=== PATIENT | male | born 1935 | race Caucasian/White ===

== ENCOUNTER 2016-11-30 10:59 | Outpatient (CLI) | payer MEDICARE, OTHER ==
[2016-11-30] MEDS ORDERED: Gadobenate Dimeglumine 529 MG/1 ML (20ML VIAL) ONE (15:06)
--- NOTE | 2016-11-30 15:32 | MRI ---
MRI BRAIN WITH AND WITHOUT CONTRAST: DATE: 11/30/16 HISTORY: 81-year-old male with provided diagnosis on the order as C71.9. Status post brain biopsy. COMPARISON: MRIs of 09/07/16, 08/10/16, and 07/06/16. TECHNIQUE: Multiple sequences obtained in axial, sagittal, and coronal planes; pre and post IV injection of kristen olinium-based contrast agent: 16 mL MultiHance. FINDINGS: The previously described lesion in the left mayorga radiata and centrum semiovale, abutting the poste rior body of the left lateral ventricle, continues to decrease in size. The halo of enhancement cont inues to shrink and is now faint and more inconspicuous than on the most recent prior study of 09/07. The T2 hyperintense signal is also smaller in diameter, as seen on the axial images, currently measuring approximately 1.2 x 0.9 cm (as measured on FLAIR axial image , series 2). It is st ill associated with a small amount of magnetic susceptibility blooming artifact, indicating a small amount of hemorrhagic products within it, which may now consist mostly of hemosiderin. There is no a ssociated mass effect. There is no midline shift. No other enhancing intra-axial lesions. Ventricles are normal in size and configuration. Again noted is the bur hole at the left coronal suture at the vertex of the skull. N o extra-axial fluid collection. Mild chronic ischemic white matter changes are again noted. IMPRESSION: Continued interval involution of the now small, enhancing lesion in the left deep cerebral white mat ter. TAM Grace POS: [facility]
== END 2016-11-30 11:00 | disposition home or self-care (01) ==
LOC: MRI 10:59
PROVIDERS: ATTEND Neurological Surgery
DX: C71.9 Malignant neoplasm of brain, unspecified (principal); G93.89 Other specified disorders of brain
CPT/HCPCS: 70553; A9579

== ENCOUNTER 2017-08-23 12:57 | Outpatient (CLI) | payer MEDICARE ==
--- NOTE | 2017-08-23 15:47 | MRI ---
BRAIN MRI WITH AND WITHOUT CONTRAST: Date: 08/23/17 COMPARISON: Numerous prior brain MRIs, most recent dated 11/30/16. HISTORY: Malignant neoplasm of brain. TECHNIQUE: Multiplanar, multisequence MR imaging of the brain is obtained with and without contrast. FINDINGS: There is an intra-axial lesion in the lateral aspect of the left frontal lobe posteriorly, at the axi al level of the septum pellucidum. This left frontal lesion measures 1.7 cm in AP dimension. It is FL AIR and T1 hypointense, T2 isointense, and demonstrates avid enhancement on postcontrast imaging. Thi s lesion is new when compared to the prior study and there is surrounding vasogenic edema, the area o f vasogenic edema associated with this lesion measuring 3.8 x 2.5 cm. The axial gradient echo imaging demonstrates no evidence for intracranial hemorrhage. The lesion with in the left frontal lobe mentioned above demonstrates restricted diffusion, consistent with high cell ularity. No additional enhancing intra-axial lesions are noted. There is mild mucosal thickening involving bilateral ethmoid air cells, the right frontal sinus, and the right maxillary sinus. Arterial flow-voids at the axial level of the skull base appear grossly un remarkable on the T2-weighted imaging. There is a stable area of increased T2 signal without enhancement involving the posterior aspect of t he centrum semiovale on the left measuring 6.0 mm, in the area of a previously noted intra-axial enha ncing lesion which was documented on studies dating back to 07/06/16. IMPRESSION: New enhancing intra-axial lesion in the lateral left frontal lobe measuring 1.7 cm with surrounding v asogenic edema, suspicious for metastatic disease or primary brain neoplasm. CODE T. POS: [facility]
== END 2017-08-23 12:58 | disposition home or self-care (01) ==
LOC: MRI 12:57
PROVIDERS: ATTEND Neurological Surgery
DX: C71.9 Malignant neoplasm of brain, unspecified (principal); G93.6 Cerebral edema; G93.9 Disorder of brain, unspecified
CPT/HCPCS: 70553; 82565

== ENCOUNTER 2017-08-27 10:31 | Outpatient (CLI) | payer MEDICARE ==
[2017-08-27 12:03] LABS: Hemoglobin 12.5 g/dL (14.0-18.0); Mean Corpuscular HGB CONC 33.6 g/dL (32.0-36.0); Mean Corpuscular Hemoglobin 30.4 pg (27.0-31.0); Mean Corpuscular Volume 90.6 fL (78.0-98.0); Mean Platelet Volume 7.7 fL (7.4-10.4); Platelet Count 190 thou/uL (130-400); RBC Distribution Width 12.4 % (11.5-14.5); White Blood Cell (WBC) Count 7.3 thou/uL (4.8-10.8)
[2017-08-27 12:16] LABS: Anion Gap 11 mmol/L (10-20); BUN (Urea Nitrogen) 20 mg/dL (8.4-25.7); Calc. Creatinine Clearance 0 mL/min (70-130); Calcium 9.2 mg/dL (7.8-10.44); Carbon Dioxide 27 mmol/L (23-31); Chloride 109 mmol/L (98-107); Estimated GFR-MDRD 66; Glucose 84 mg/dL (83-110); Potassium 4.2 mmol/L (3.5-5.1); Sodium 143 mmol/L (136-145)
== END 2017-08-27 10:32 | disposition home or self-care (01) ==
LOC: LABBT 10:31
PROVIDERS: ATTEND Neurological Surgery
DX: Z01.812 Encounter for preprocedural laboratory examination (principal); G93.9 Disorder of brain, unspecified
CPT/HCPCS: 80048; 85027

== ENCOUNTER 2017-09-01 05:46 | Inpatient (IN) | payer MEDICARE ==
--- NOTE | 2017-09-01 02:41 | HP ---
CHIEF COMPLAINT: Brain mass. HISTORY OF PRESENT ILLNESS: Mr. Moon is back in the clinic for evaluation, followup MRI brain scan. In 07/2016, he had a biopsy that was nondiagnostic. Since then that went away by itself and he has been well. There has been some right leg weakness and he uses a cane, but he is doing great. He denies any speech disturbance. PAST MEDICAL HISTORY: History of aortic aneurysm, nodules foramen right and left lungs, hypertension, diabetes, GERD, cardiovascular disease, and hyperlipidemia. PAST SURGICAL HISTORY: Basal cell carcinoma surgery in 2015, heart valve replacement and stents. HOSPITALIZATIONS: The above surgeries as well as difficulty swallowing in 2002. FAMILY HISTORY: Father is . Mother is . Siblings are . Son is alive. Daughter is alive. SOCIAL HISTORY: The patient is a former smoker, quit in 1983, smoked for about 20 years 1 pack a day, does not use any other tobacco products. The patient does not drink any alcohol or use any other illicit drugs. 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 Does drink caffeine. ALLERGIES: PENICILLIN. MEDICATIONS: Aspirin, Plavix, carvedilol, valsartan, atorvastatin, CoQ10, Januvia, Protonix, nitroglycerin. PHYSICAL EXAMINATION: CONSTITUTIONAL: The patient is alert and oriented. HEENT: Head normocephalic, atraumatic. Extraocular movements intact. Hearing intact. Moist mucous membranes. PULMONARY: Normal work of breathing room air. CARDIOVASCULAR: Regular rate and rhythm. Normal S1, S2. NEUROLOGIC: Cranial nerves are intact. Cerebellar exam: There is no truncal ataxia. Gait and station: Mild right leg weakness, upper motor neuron distribution. Motor exam: Mild right leg weakness. No new drift. Sensory exam: No neglect. Speech is fluent, receptive, and expressive, speech is normal. MRI lesion with biopsy completely gone. New lesion left frontal operculum with edema surrounding, uniformly enhancing parenchymal. ASSESSMENT AND PLAN: 1. Malignant neoplasm of the frontal lobe. 2. Dr. So offered craniotomy with open biopsy and resection. Informed consent, we have discussed the indications, risks, benefits, alternatives, and expected results from surgery. The discussed indication to include, but do not limited to infection, bleeding, CSF leak, brain damage, significant loss of neurological function, seizures, strokes dependence of normal care, cardiopulmonary complications of anesthesia or long-term complications discussed included, but are not limited to recurrence, and the need for future surgery. He understands the risks and is willing to proceed. 3. The patient needs to stop aspirin and Plavix. KALE
[2017-09-01] MEDS ORDERED: Sodium Chloride 0.9% 10 ML ONE (06:25)
[2017-09-01] MEDS ORDERED: Lidocaine 0.5%/Epinephrine 1:200,000 50 ml Vial ONE (06:25)
[2017-09-01] MEDS ORDERED: Bacitracin Zinc Ointment 30 gm TUBE ONE (06:25)
[2017-09-01] MEDS ORDERED: Thrombin 5000 UNITS/5 ML VIAL ONE (06:25)
[2017-09-01] MEDS ORDERED: Nitroglycerin 50 MG/250 ML BOT 250 ML ONE (06:40)
[2017-09-01] MEDS ORDERED: Phenylephrine HCL 10 MG/ML VIAL ONE (06:40)
[2017-09-01] MEDS ORDERED: CEFAZOLIN/Water 2 GM/20 ML SYRINGE ONE (06:49)
[2017-09-01] MEDS ORDERED: Fentanyl 100 MCG/2 ML VIAL ONE (06:57)
[2017-09-01 07:57] VITALS: BMI 24.3
[2017-09-01] MEDS ORDERED: levETIRAcetam 500 MG/100 ML PREMIX BAG ONE (09:08)
[2017-09-01] MEDS ORDERED: Docusate 100 MG CAP PO PRN (09:40)
[2017-09-01] MEDS ORDERED: HYDROcodone/Acetaminophen 7.5/325 mg Tablet PO PRN ×2 (09:40)
[2017-09-01] MEDS ORDERED: Cepastat Lozenges 1 LOZ PO PRN (09:40)
[2017-09-01] MEDS ORDERED: Mag-Al 1200 mg/1200 mg/30 ML UDCUP PO PRN (09:40)
[2017-09-01] MEDS ORDERED: Zolpidem Tartrate 5 MG TAB PO PRN (09:40)
[2017-09-01] MEDS ORDERED: Ondansetron HCl/PF 4 MG/2 ML Vial IVP PRN ×2 (09:40→10:07)
[2017-09-01] MEDS ORDERED: Labetalol HCl 100 MG/20 ML VIAL SLOW IVP PRN (09:40)
[2017-09-01] MEDS ORDERED: hydrALAZINE 20 MG/ML VIAL SLOW IVP PRN (09:40)
[2017-09-01] MEDS ORDERED: diphenhydrAMINE 50 MG CAP PO PRN (09:40)
[2017-09-01] MEDS ORDERED: Nitroglycerin 0.4 MG TAB (25 Tab Bottle) SL PRN (09:56)
[2017-09-01] MEDS ORDERED: HYDROmorphone 2 MG/ML VIAL SLOW IVP PRN (10:07)
[2017-09-01] MEDS ORDERED: Promethazine HCl 25 MG/ML VIAL IM PRN (10:07)
[2017-09-01] MEDS ORDERED: Promethazine HCl 25 MG/ML VIAL SLOW IVP PRN (10:07)
[2017-09-01] MEDS ORDERED: Morphine Sulfate 2 MG/ML SYRINGE SLOW IVP PRN (10:07)
[2017-09-01] MEDS ORDERED: Meperidine HCl/PF 25 MG/ML VIAL SLOW IVP PRN (10:07)
[2017-09-01] MEDS: Sodium Chloride 0.9% 1,000 ML IV SCH ×2 (11:52→20:14)
--- NOTE | 2017-09-01 11:59 | OP ---
DATE OF PROCEDURE: 09/01/2017 SURGEON: Zoie So M.D. RESERVATIONS MANAGER: Kelly Lamb PA-C PREOPERATIVE INDICATION: Make diagnosis, prevent neurological deterioration. PREOPERATIVE DIAGNOSIS: Left frontal lobe lesion. POSTOPERATIVE DIAGNOSIS: Left frontal lobe lesion. OPERATIVE PROCEDURE: BrainLAB stereotactic-assisted left frontal craniotomy, debulking of tumor. PREOPERATIVE MEDICATION: Ancef 2 grams IV. DRAIN NUMBER: Zero. DRAIN TYPE: None. OPERATIVE DICTATION: The patient was brought to the operating room. General endotracheal anesthesia was induced. A Suarez nemo headholder was attached to the patient's head. The neck was turned to the right and the head was immobilized with Suarez attachment for the operating table. Using [facility] [employer] navigation system, [facility], and surface registration techn [employer], we created a 3-dimensional navigational stereotactic map. We checked our registration with yisel face landmarks and found it to be excellent. Hair was removed from the left side of the scalp with e lectric clippers. We planned a curvilinear incision from the root of the zygoma towards the midline of the upper forehead behind the hairline. Under our incision, we infused local anesthetic. The sca lp was sterilely prepped and draped. We opened with a 10-blade knife and controlled bleeding with bi polar and monopolar cautery. We dissected down to the periosteal layer and folded the scalp flap for carty leaving the temporalis muscle. The [employer] navigation system demonstrated the surface presenta tion of the tumor just under the temporalis muscle about 1 cm below the superior temporal line. We m shree 2 vertical incisions in temporalis muscle and folded it inferiorly under a fishhook. We then chika lance a yoav hole behind the frontal keyhole and one in the posterior third of the superior temporal li ne. We fashioned a circular craniotomy after stripping the dura from the undersurface of the bone. We irrigated copiously with bacitracin irrigation. We opened the dura in a cruciate fashion. The [employer] navigation system showed us the surface presentation on the frontal operculum of the lesion. We brought the operating microscope into the field. Under microscopic magnification using microsurgical techniques, we made a small corticotomy dissected with micro instruments to the edge of the lesion, which was more firm. It was a white color unlike the brain around it and completely different consistency. It feathered out on the edges towards norm al brain. We entered the center of the lesion and took multiple fragments and sent them to pathology . The pathologist called, who found that there was viable tissue that was very abnormal and that the cells were poorly differentiated, round blue cells, and lymphoma was on the differential. They manuel cated they had enough tissue to make a final diagnosis. We debulked the center of the lesion without touching any normal brain around it. We therefore undoubtedly left a shell of tumor tissue behind. We irrigated copiously with bacitracin irrigation. We closed the dura with 4-0 silk pop off. The o perative microscope was taken out of the field, the skull flap was reapproximated with plates and scr ews. We closed the temporalis muscle and closed the scalp in anatomic layers, and we applied a steri le dressing. The patient was taken out of the [facility] and transferred to the transfer cart. This w as a clean case and no contamination.
[2017-09-01] MEDS ORDERED: Dexamethasone 4 MG TAB PO SCH (12:00)
[2017-09-01] MEDS: Acetaminophen 325 MG TAB PO PRN ×2 (12:12→21:02)
[2017-09-01] MEDS ORDERED: Dexamethasone 20 MG/5 ML VIAL ONE (13:50)
[2017-09-01] MEDS ORDERED: Glycopyrrolate 0.2 MG/ML 5 ML SYRINGE ONE (13:50)
[2017-09-01] MEDS ORDERED: Lidocaine 1% PF 5 ML VIAL ONE ×2 (13:50)
[2017-09-01] MEDS ORDERED: PHENYLEPHRINE-NS 100 MCG/ML 10 ML SYRINGE ONE (13:50)
[2017-09-01] MEDS ORDERED: Esmolol 100 MG/10 ML VIAL ONE (13:50)
[2017-09-01] MEDS ORDERED: Ondansetron HCl/PF 4 MG/2 ML Vial ONE (13:50)
[2017-09-01] MEDS ORDERED: PROPOFOL 200 MG/20 ML VIAL ONE (13:50)
[2017-09-01] MEDS: CEFAZOLIN/Water 2 GM/20 ML SYRINGE SLOW IVP SCH ×2 (14:06→21:03)
[2017-09-01] MEDS: Dexamethasone 4 MG TAB PO SCH (17:30)
[2017-09-01] MEDS: Carvedilol 3.125 MG TAB PO SCH (20:01)
[2017-09-01] MEDS: levETIRAcetam 500 MG TAB PO SCH (20:02)
[2017-09-01] MEDS ORDERED: Famotidine 20 MG TAB PO SCH (21:00)
[2017-09-01] MEDS ORDERED: Pantoprazole 40 MG GRANULES PACKET PO SCH (21:00)
[2017-09-01] MEDS ORDERED: Atorvastatin Calcium 40 MG TAB PO SCH (21:00)
[2017-09-01] MEDS ORDERED: Ubidecarenone 50 MG CAP PO SCH (21:00)
[2017-09-02 00:57] VITALS: TEMP 97.8
[2017-09-02] MEDS: Acetaminophen 325 MG TAB PO PRN ×2 (00:59→05:11)
[2017-09-02] MEDS: Dexamethasone 4 MG TAB PO SCH ×2 (01:00→05:11)
[2017-09-02] MEDS ORDERED: Dexamethasone 1 MG TAB PO SCH ×3 (06:00→14:00)
--- NOTE | 2017-09-02 06:43 | PRG ---
DATE OF SERVICE: 09/02/2017 Mr. Moon is 1 day out from stereotactic tumor debulking in the left frontal operculum. He had a paola sonable evening. He has no evidence of dysphasia this morning. He reports that it is a little hard to sleep in the ICU, but he finally got to sleep around 2:00 a.m. Does not have any other complaints . His vitals look reasonably stable. Incision is well approximated and dry. There is no significan t scalp swelling yet. I do not see any new neurological deficits on Mr. Moon. If he is able to be safe for his activities of daily living, he can be discharged today. I warned him that his scalp wou ld swell over the next few days and then start getting better on Wednesday. He should avoid aspirin and Plavix for 2 weeks. When the pathologist finish with their work, we will contact the family with th e results of the pathology and move onto the next step of treatment.
[2017-09-02] MEDS: levETIRAcetam 500 MG TAB PO SCH (08:37)
[2017-09-02] MEDS: Carvedilol 3.125 MG TAB PO SCH (08:38)
[2017-09-02] MEDS ORDERED: Stress 600 With Zinc 1 TAB PO SCH (09:00)
[2017-09-02] MEDS ORDERED: Alogliptin 25 MG TAB PO SCH (09:00)
[2017-09-02] MEDS ORDERED: Valsartan 80 MG TAB PO SCH (09:00)
[2017-09-02 11:15] VITALS: BP 116/57
[2017-09-03] MEDS ORDERED: Dexamethasone 1 MG TAB PO SCH ×2 (06:00→18:00)
== END 2017-09-02 10:13 | disposition home or self-care (01) | DRG 822 ==
LOC: SURG A 05:46 → CCU 10:17
PROVIDERS: ADMIT Neurological Surgery; ATTEND Neurological Surgery
PROC: 00B70ZZ Excision of Cerebral Hemisphere, Open Approach (ICD-10-PCS; principal; 2017-09-01)
PROC: 2W30XYZ Immobilization of Head using Other Device (ICD-10-PCS; 2017-09-01)
DX: C83.31 Diffuse large B-cell lymphoma, lymph nodes of head, face, and neck (principal); I10 Essential (primary) hypertension; K21.9 Gastro-esophageal reflux disease without esophagitis; E78.5 Hyperlipidemia, unspecified; I25.10 Atherosclerotic heart disease of native coronary artery without angina pectoris; Z87.891 Personal history of nicotine dependence; Z95.2 Presence of prosthetic heart valve; Z95.5 Presence of coronary angioplasty implant and graft; Z98.890 Other specified postprocedural states
CPT/HCPCS: 36415; 85610; 85730; 88184; 88307; 88331; 88333; 88334; 88341; 88342; 88360; A4216; C1713; G8978-GP-CI; G8979-GP-CI; G8980-GP-CI; J0131; J1100; J1953; J2001; J2370; J2405; J2704; J3010; J3490; J8540

== ENCOUNTER 2017-11-28 20:10 | Inpatient (IN) | payer MEDICARE ==
[2017-11-28 20:42] LABS: Bilirubin Negative (Negative); Blood, Urine Moderate (Negative); Clarity CLEAR (Clear); Glucose, Urine (Dipstick) 100 mg/dL (Negative); Leukocyte Moderate (Negative); Nitrite Negative (Negative); Protein, Urine (Dipstick) Negative (Neg-Trace); Specific Gravity, Urine 1.018 (1.002-1.036); Urobilinogen 0.2 mg/dL (0.2-1.0); pH, Urine 5.5 (5.0-9.0)
[2017-11-28 20:44] LABS: Bacteria/HPF 3+ HPF (None Seen); Hyaline Casts/LPF 0-3 HYALINE CAST LPF (0-3 Hyaline); Pathc Cast-AUWi Flag 0.29 (0-2.49); Squamous Epithelial None Seen HPF (0-3); WBC/HPF 21-50 HPF (0-3)
[2017-11-28] MEDS ORDERED: cefTRIAXone\\ROCEPHIN 1 GM VIAL ONE (20:57)
[2017-11-28] MEDS ORDERED: Sodium Chloride 0.9% 100 ML ONE (20:58)
[2017-11-28 21:01] LABS: #Eosinphils 0.1 thou/uL (0.0-0.7); #Lymphocytes 1.3 thou/uL (1.20-3.40); #Monocytes 2.1 thou/uL (0.11-0.59); #Neutrophils 10.7 thou/uL (1.40-6.50); %Basophils 0.3 % (0.0-1.0); %Eosinophils 0.4 % (0.0-10.0); %Lymphocytes 9.3 % (21.0-51.0); %Monocytes 14.5 % (0.0-10.0); %Neutrophils 75.5 % (42.0-75.0); Hemoglobin 10.8 g/dL (14.0-18.0); Mean Corpuscular HGB CONC 32.7 g/dL (32.0-36.0); Mean Corpuscular Hemoglobin 29.9 pg (27.0-31.0); Mean Corpuscular Volume 91.4 fL (78.0-98.0); Platelet Count 206 thou/uL (130-400); RBC Distribution Width 14.9 % (11.5-14.5); Red Blood Cell (RBC) Count 3.61 mill/uL (4.70-6.10); White Blood Cell (WBC) Count 14.1 thou/uL (4.8-10.8)
[2017-11-28 21:24] LABS: ALT (SGPT) 29 U/L (8-55); AST (SGOT) 20 U/L (5-34); Alkaline Phosphatase 76 U/L (40-150); Anion Gap 8 mmol/L (10-20); BUN (Urea Nitrogen) 24 mg/dL (8.4-25.7); Bilirubin, Total 1.1 mg/dL (0.2-1.2); Calc. Creatinine Clearance 0 mL/min (70-130); Calcium 9.3 mg/dL (7.8-10.44); Carbon Dioxide 29 mmol/L (23-31); Chloride 102 mmol/L (98-107); Estimated GFR-MDRD 59; Globulin 2.6 g/dL (2.4-3.5); Glucose 118 mg/dL (83-110); Potassium 4.2 mmol/L (3.5-5.1); Protein, Total 6.6 g/dL (5.8-8.1); Sodium 135 mmol/L (136-145)
--- NOTE | 2017-11-28 21:36 | RAD ---
CHEST ONE VIEW: INDICATIONS: History of fever. COMPARISON: None. FINDINGS: There is a right IJ chest wall port. The lungs are clear. Heart size is upper limits of normal. Th ere are vascular calcifications involving the aortic arch. The aorta is mildly tortuous. There is m ild thoracolumbar scoliosis. No acute osseous abnormality is evident. IMPRESSION: No acute cardiopulmonary abnormality. POS: [facility]
[2017-11-28] MEDS ORDERED: Acetaminophen 500 MG TAB ONE (22:37)
[2017-11-29] MEDS ORDERED: Ibuprofen 800 MG TAB ONE (00:05)
[2017-11-29 00:52] VITALS: BMI 23.6
[2017-11-29] MEDS ORDERED: Ondansetron HCl/PF 4 MG/2 ML Vial IVP PRN (00:53)
[2017-11-29] MEDS ORDERED: Ondansetron ODT 4 MG TAB SL PRN (00:53)
[2017-11-29] MEDS ORDERED: Acetaminophen 325 MG TAB PO PRN ×2 (00:53→02:40)
[2017-11-29] MEDS: Sodium Chloride 0.9% 1,000 ML IV SCH ×2 (03:01→21:46)
[2017-11-29] MEDS ORDERED: Nitroglycerin 0.4 MG TAB (25 Tab Bottle) SL PRN (03:56)
[2017-11-29] MEDS: Vancomycin HCl 1 GM in Premix Bag 1 BAG IVPB SCH ×2 (03:59→16:56)
[2017-11-29 05:32] LABS: #Eosinphils 0.1 thou/uL (0.0-0.7); #Lymphocytes 1.2 thou/uL (1.20-3.40); #Monocytes 1.4 thou/uL (0.11-0.59); #Neutrophils 8.3 thou/uL (1.40-6.50); %Basophils 0.4 % (0.0-1.0); %Eosinophils 1.4 % (0.0-10.0); %Lymphocytes 11.1 % (21.0-51.0); %Monocytes 12.8 % (0.0-10.0); %Neutrophils 74.4 % (42.0-75.0); Hemoglobin 9.4 g/dL (14.0-18.0); Mean Corpuscular HGB CONC 33.4 g/dL (32.0-36.0); Mean Corpuscular Hemoglobin 30.8 pg (27.0-31.0); Mean Corpuscular Volume 92.1 fL (78.0-98.0); Mean Platelet Volume 7.8 fL (7.4-10.4); Platelet Count 176 thou/uL (130-400); RBC Distribution Width 14.7 % (11.5-14.5); Red Blood Cell (RBC) Count 3.06 mill/uL (4.70-6.10); White Blood Cell (WBC) Count 11.1 thou/uL (4.8-10.8)
[2017-11-29 05:40] LABS: ALT (SGPT) 21 U/L (8-55); AST (SGOT) 13 U/L (5-34); Albumin 3.3 g/dL (3.4-4.8); Alkaline Phosphatase 61 U/L (40-150); Anion Gap 7 mmol/L (10-20); BUN (Urea Nitrogen) 24 mg/dL (8.4-25.7); Calc. Creatinine Clearance 59 mL/min (70-130); Calcium 8.7 mg/dL (7.8-10.44); Carbon Dioxide 27 mmol/L (23-31); Chloride 107 mmol/L (98-107); Estimated GFR-MDRD 61; Globulin 2.1 g/dL (2.4-3.5); Glucose 150 mg/dL (83-110); Magnesium 1.6 mg/dL (1.6-2.6); Potassium 3.6 mmol/L (3.5-5.1); Protein, Total 5.4 g/dL (5.8-8.1); Sodium 137 mmol/L (136-145)
[2017-11-29] MEDS ORDERED: HumaLOG 300 UNITS/3 ML VIAL SC PRN (05:48)
[2017-11-29] MEDS ORDERED: Dextrose 5% in Water 1,000 ML IV PRN (05:48)
[2017-11-29] MEDS ORDERED: Dextrose 50% Abboject 50 ML SYRINGE IVP PRN (05:48)
[2017-11-29] MEDS: Aztreonam 2 GM in Sodium Chloride 0.9% 100 ML IVPB SCH ×3 (06:08→21:46)
[2017-11-29] MEDS: Stress 600 With Zinc 1 TAB PO SCH (08:34)
[2017-11-29] MEDS: Clopidogrel Bisulfate 75 MG TAB PO SCH (08:34)
[2017-11-29] MEDS: Alogliptin 25 MG TAB PO SCH (08:34)
[2017-11-29] MEDS: Aspirin 81 mg Enteric Coated Tablet PO SCH (08:35)
[2017-11-29] MEDS: Enoxaparin Sodium 40 MG/0.4 ML SYRINGE SC SCH (08:35)
--- NOTE | 2017-11-29 10:35 | HP ---
CHIEF COMPLAINT: Fever. HISTORY OF PRESENT ILLNESS: This is an 82-year-old male with past medical history of hypertension, hyperlipidemia, GERD, brain cancer, specifically lymphoma, presenting with fever and chills. Per patient's , the patient's last methotrexate treatment was 13 days ago at [facility] [place], and patient also received treatment with procarbazine and patient was at [facility] [place] on the 4th, the 5th, and the 6th of this month and received the last 3 doses of procarbazine at home. On arrival, states that patient had fever and temperature was around 101. Patient states that he has been feeling well during his chemo, but now having fever and also symptoms of dysuria. The patient denies any vomiting, nausea, chest pain, palpitations, back pain, diarrhea, constipation. Of note, in 2017, patient had a deep brain tumor, which according to the disappeared. On 09/01/2017, patient underwent left craniotomy and debulking of tumor. REVIEW OF SYSTEMS: Positive for fever, chills, and dysuria. Otherwise, as documented in the HPI, all other systems were reviewed and were negative. PAST MEDICAL HISTORY: Hypertension, hyperlipidemia, GERD, lymphoma. PAST SURGICAL HISTORY: Cardiac stent placement x4. Needle biopsy, cranial biopsy. PSYCHIATRIC HISTORY: No previous psychiatric history. SOCIAL HISTORY: Denies alcohol use. Denies any illicit drug use. Denies any smoking history. The patient lives at home with the . FAMILY HISTORY: Reviewed and noncontributory. ALLERGIES: PENICILLIN. CURRENT MEDICATIONS: 1. Carvedilol 3.125. 2. Clopidogrel 75 mg. 3. Pantoprazole 40 mg. 4. Losartan 50 mg. 5. Atorvastatin 40 mg. 6. Januvia 100 mg. PHYSICAL EXAMINATION: VITAL SIGNS: Blood pressure is 137/68, pulse is 84, respiratory rate of 18, temperature of 101.4. GENERAL: The patient is lying in bed, appears to be sweating profusely, and able to speak without any difficulties. NEUROLOGIC: The patient is alert and oriented x3. HEENT: Normocephalic, atraumatic. Pupils are equally round and react to light. Extraocular movements are intact. No scleral icterus. No conjunctival pallor. No nystagmus. NECK: Trachea is normal. Full range of motion. No tracheal deviation. No meningeal signs. RESPIRATORY: Clear to auscultation bilaterally. No wheezing, no rales, no rhonchus appreciated. CARDIOVASCULAR: Positive S1 and S2, regular rate and rhythm. ABDOMEN: Soft, nontender, nondistended. Positive bowel sounds in all quadrants. EXTREMITIES: The patient has a 5/5 upper extremity strength and 5/5 lower extremity strength. SKIN: Warm, dry, and intact. ED COURSE: The patient received Motrin, normal saline, Tylenol, Rocephin. LABORATORY DATA: WBC is 14.1, hemoglobin is 10.8, hematocrit is 33.0, RDW is 14.9. Sodium 135, potassium is 4.2, chloride is 102, carbon dioxide 29, anion gap of 8, BUN is 24, creatinine is 1.19, glucose 118. Urinalysis positive for leukoesterase. ASSESSMENT AND PLAN: This is an 82-year-old male, being admitted for: 1. fever and chills, likely due to a side effect of chemotherapy. At this point , the patient's white count is elevated at 14. We will start the patient on antibiotics. We will monitor the patient's blood pressure and patient's temperature. We will get cultures and follow up on cultures. We will continue to manage the patient supportively. 1. History of lymphoma. Patient goes to [facility] [place] for treatment. Patient is scheduled to go for followup tomorrow. We will contact [facility] for any further recommendations. This patient needs to be transferred to that facility. 2. History of hypertension. We will continue current medication. 3. History of diabetes mellitus. We will do insulin sliding scale. 4. Deep venous thrombosis and gastrointestinal prophylaxis. We will do Lovenox. MTDD
--- NOTE | 2017-11-29 17:06 | CON ---
DATE OF CONSULTATION: 11/29/2017 REASON FOR CONSULTATION: Primary SHAREPOINT MANAGER lymphoma. HISTORY OF PRESENT ILLNESS: An 82-year-old male with primary SHAREPOINT MANAGER lymphoma, on chemotherapy at [facility], presenting with fever and urinary incontinence and burning with urination. The patient states that for the past few days he has had urinary incontinence and mild burning pain on urination. Yesterday, his thought he looked feverish, when checked his temperature it is 101.5. She promptly called me and I recommended she take him to the ER given the fever and current chemotherapy. On arrival to the ER, the patient's temperature was 101. Vital signs are otherwise stable, though he did have leukocytosis. The patient is currently on high dose methotrexate and procarbazine. The patient was due for an MRI today and to start his fourth cycle of treatment this week. Urinalysis in the ER was positive for WBC and leukoesterase and prelim culture suggests Klebsiella/Enterobacter. The patient denies any headaches, nausea, vomiting, diarrhea. He states that his incontinence and burning are improved since admission to the hospital. He denies any current fevers. REVIEW OF SYSTEMS: Ten-point review of systems negative except as per HPI. PAST MEDICAL HISTORY: Primary SHAREPOINT MANAGER lymphoma, hypertension, hyperlipidemia, GERD. PAST SURGICAL HISTORY: Renal biopsy, cardiac stent placement x4. SOCIAL HISTORY: Denies smoking, alcohol or illicit drugs. The patient lives at home with . FAMILY HISTORY: Noncontributory. ALLERGIES: PENICILLIN. CURRENT MEDICATIONS: Reviewed. PHYSICAL EXAMINATION: VITAL SIGNS: Temperature 97.5, pulse 57, blood pressure 122/58, respirations 16 , satting 94% on room air. GENERAL: The patient sitting in a chair watching TV, in no acute distress. HEENT: Normocephalic, atraumatic. No scleral icterus. RESPIRATORY: Clear to auscultation bilaterally. CARDIOVASCULAR: Normal S1, S2 with regular rate and rhythm. ABDOMEN: Soft, nondistended, nontender. No suprapubic tenderness. EXTREMITIES: A 5/5 strength in all extremities. No edema. SKIN: No rash. NEUROLOGIC: Cranial nerves 2 through 3 grossly intact. PSYCHIATRIC: Awake, alert and oriented x3. LABORATORY DATA: White blood cells 14.1 on admission, currently 11.1, hemoglobin 9.4, platelets 176. BUN 24, creatinine 1.15. Urine showed moderate leukocyte esterase, 21-50 white blood cells, 3+ bacteria. Urine culture shows presumptive klebsiella/enterobacter. IMAGING DATA: Chest x-ray on 11/28/2014 showed no acute cardiopulmonary abnormality. ASSESSMENT AND PLAN: An 82-year-old male with history of primary SHAREPOINT MANAGER lymphoma, currently on high dose methotrexate and procarbazine, being treated at [facility], presented to the hospital with fever, urinary continence of burning on urination. He was found to have a UTI and positive SIRS criteria consistent with sepsis secondary to urinary tract infection. The patient is currently stable and afebrile on aztreonam and vancomycin. Presumptive urine culture shows klebsiella/enterobacter. The patient was due for chemotherapy this week and is currently pending possible transfer to [facility] as an inpatient. The patient has not had restaging scan of his lymphoma. This was due for today with MRI of the brain. He has tolerated chemotherapy very well and currently has no neurologic deficits. The patient is stable and with gram negative bacteria in the urine, the patient does not require vancomycin. We would recommend continuing IV antibiotics for his complicated UTI in this immunosuppressed patient and transferred to [facility] if patient is accepted. The patient can continue to follow up with Yaniv Khan and Dr. Merrill as an outpatient. [facility]
[2017-11-29] MEDS: Atorvastatin Calcium 40 MG TAB PO SCH (21:45)
[2017-11-30] MEDS: Vancomycin HCl 1 GM in Premix Bag 1 BAG IVPB SCH (03:57)
[2017-11-30] MEDS: Aztreonam 2 GM in Sodium Chloride 0.9% 100 ML IVPB SCH ×2 (06:31→14:04)
[2017-11-30] MEDS: Alogliptin 25 MG TAB PO SCH (08:08)
[2017-11-30] MEDS: Aspirin 81 mg Enteric Coated Tablet PO SCH (08:09)
[2017-11-30] MEDS: Clopidogrel Bisulfate 75 MG TAB PO SCH (08:09)
[2017-11-30] MEDS: Enoxaparin Sodium 40 MG/0.4 ML SYRINGE SC SCH (08:09)
[2017-11-30] MEDS ORDERED: Carvedilol 3.125 MG TAB PO SCH (09:03)
[2017-11-30] MEDS: Carvedilol 3.125 MG TAB PO SCH ×2 (09:50→20:04)
[2017-11-30] MEDS: Stress 600 With Zinc 1 TAB PO SCH (09:51)
--- NOTE | 2017-11-30 14:32 | PDOC.PN ---
- Subjective Encounter Start Date: 11/30/17 Encounter Start Time: 14:30 Subjective: feels better but still weak -: discussed the request for transfer to [facility] & they want to stay -: no N/V/D/no SOB/cough/CP - Objective Resuscitation Status: Resuscitation Status FULL:Full Resuscitation MAR Reviewed: Yes Vital Signs & Weight: Vital Signs (12 hours) Temp Pulse Resp BP BP Pulse Ox 11/30/17 12:00 97.6 F 63 18 131/60 96 11/30/17 08:00 97.7 F 54 L 18 101/54 L 93 L 11/30/17 04:00 98.5 F 58 L 16 100/50 L 93 L Weight Weight 179 lb 6 oz I&O: 11/29/17 11/30/17 12/01/17 06:59 06:59 06:59 Intake Total 323 3180 Output Total 500 0 Balance -177 3180 Result Diagrams: 11/29/17 05:10 11/29/17 05:10 Additional Labs: Accuchecks 11/30/17 11/30/17 11/29/17 10:59 06:33 20:09 POC Glucose 137 H 110 156 H 11/29/17 17:27 POC Glucose 109 Microbiology 11/28/17 20:45 Venous blood - Right Arm Blood Culture - Preliminary Specimen has been received and culture in progress. No Growth to date. 11/28/17 20:38 Venous blood - Left Arm Blood Culture - Preliminary Specimen has been received and culture in progress. No Growth to date. 11/28/17 20:30 Urine voided Urine Culture - Preliminary Klebsiella pneumoniae ssp pneu Laboratory Tests 11/28/17 11/28/17 11/29/17 20:45 20:45 05:10 WBC 14.1 H 11.1 H Lactic Acid 1.2 Phys Exam - Physical Examination Constitutional: NAD HEENT: PERRLA, moist MMs, sclera anicteric, oral pharynx no lesions Neck: no nodes, no JVD, supple, full ROM Respiratory: no wheezing, no rales, no rhonchi, clear to auscultation bilateral Cardiovascular: RRR, no significant murmur, no rub Gastrointestinal: soft, non-tender, no distention, positive bowel sounds Musculoskeletal: no edema, pulses present Mediport site w/o erythema/warmth/swelling Neurological: non-focal, normal sensation, moves all 4 limbs Psychiatric: normal affect, A&O x 3 Skin: no rash Dx/Plan (1) Sepsis Code(s): A41.9 - SEPSIS, UNSPECIFIED ORGANISM Status: Acute (2) UTI (urinary tract infection) Status: Acute Qualifiers: Hematuria presence: without hematuria (3) 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 port site uninfected -: Pt will keep new appt at [facility] for staging MRI -: No need to transfer as anticpite DC home tomorrow. family agreeable -: am labs.HD stable. clinically better. arrange HH * . Review of Systems - Review of Systems Constitutional: weakness, malaise. negative: fever, chills, sweats, other ENT: negative: Ear Pain, Ear Discharge, Nose Pain, Nose Discharge, Nose Congestion, Mouth Pain, Mouth Swelling, Throat Pain, Throat Swelling, Other Cardiovascular: negative: chest pain, palpitations, orthopnea, paroxysmal nocturnal dyspnea, edema, light headedness, other Gastrointestinal: negative: Nausea, Vomiting, Abdominal Pain, Diarrhea, Constipation, Melena, Hematochezia, Other Genitourinary: negative: Dysuria, Frequency, Incontinence, Hematuria, Retention , Other Musculoskeletal: negative: Neck Pain, Shoulder Pain, Arm Pain, Back Pain, Hand Pain, Leg Pain, Foot Pain, Other Neurological: negative: Weakness, Numbness, Incoordination, Change in Speech, Confusion, Seizures, Other - Medications/Allergies Allergies/Adverse Reactions: Allergies Allergy/AdvReac Type Severity Reaction Status Date / Time Penicillins Allergy Verified 11/29/17 01:23 Medications: Current Medications Acetaminophen (Tylenol) 650 mg PO Q6H PRN PRN Reason: Headache/Fever or Pain Alogliptin Benzoate (Alogliptin) 25 mg PO DAILY [facility] Last Admin: 11/30/17 08:08 Dose: 25 mg Aspirin (Ecotrin) 81 mg PO DAILY [facility] Last Admin: 11/30/17 08:09 Dose: 81 mg Atorvastatin Calcium (Lipitor) 40 mg PO QPM [facility] Last Admin: 11/29/17 21:45 Dose: 40 mg Carvedilol (Coreg) 3.125 mg PO BID [facility] Last Admin: 11/30/17 09:50 Dose: Not Given Clopidogrel Bisulfate (Plavix) 75 mg PO DAILY [facility] Last Admin: 11/30/17 08:09 Dose: 75 mg Dextrose/Water (Dextrose 50%) 25 gm IVP PRN PRN PRN Reason: HYPOGLYCEMIA PROTOCOL Enoxaparin Sodium (Lovenox) 40 mg SC 0900 [facility] Last Admin: 11/30/17 08:09 Dose: 40 mg Glucagon (Glucagon) 1 mg IM PRN PRN PRN Reason: HYPOGLYCEMIA PROTOCOL Sodium Chloride (Normal Saline 0.9%) 1,000 mls @ 80 mls/hr IV .[id number] [facility] Last Admin: 11/29/17 21:46 Dose: 1,000 mls Vancomycin HCl 1 gm/ Device 200 mls @ 200 mls/hr IVPB 0400,1600 [facility] Last Admin: 11/30/17 03:57 Dose: 200 mls Aztreonam 2 gm/ Sodium (Chloride) 100 mls @ 200 mls/hr IVPB Q8HR [facility] Last Admin: 11/30/17 14:04 Dose: 100 mls Dextrose/Water (D5w) 1,000 mls @ 0 mls/hr IV INF PRN PRN Reason: HYPOGLYCEMIA PROTOCOL Insulin Human Lispro (Humalog) 0 units SC .MILD SLIDING SCALE PRN; Protocol PRN Reason: MILD SLIDING SCALE Miscellaneous Medication (Pharmacy To Dose) 0 each IVPB PRN PRN PRN Reason: V[facility] Pharmacy to Dose Multivitamins/Zinc (Stress 600 With Zinc) 1 tab PO DAILY [facility] Last Admin: 11/30/17 09:51 Dose: 1 tab Nitroglycerin (Nitrostat) 0.4 mg SL ASDIR PRN PRN Reason: Chest Pain Pantoprazole Sodium (Protonix) 40 mg PO DAILY [facility] Last Admin: 11/30/17 08:08 Dose: 40 mg Sodium Chloride (Flush - Normal Saline) 10 ml IVF Q12HR [facility] Last Admin: 11/30/17 08:09 Dose: Not Given Sodium Chloride (Flush - Normal Saline) 10 ml IVF PRN PRN PRN Reason: Saline Flush Last Admin: 11/29/17 03:01 Dose: 10 ml
[2017-11-30] MEDS: Sodium Chloride 0.9% 1,000 ML IV SCH ×2 (16:30→23:22)
--- NOTE | 2017-11-30 18:38 | CT ---
ABDOMEN AND PELVIC CT SCAN WITHOUT IV CONTRAST: 11/30/17 HISTORY: 82-year-old male with history of fever and urinary tract infection. The patient is on chemotherapy fo r lymphoma. COMPARISON: 06/10/16 CT angiogram chest. Mild linear stranding in the posterior lung bases. Small caliber gallbladder with a possible very tin y gallstone. No ductal dilatation. The pancreas, spleen, adrenal glands, are unremarkable. There are two focal aneurysms of the abdominal aorta, one just below the level of the renal arteries approxima ting 4.9 cm in anterior and posterior dimension and a second somewhat more caudal aneurysm measuring approximately 4.3 cm in anterior posterior dimension, these do not appear significantly changed from the prior 06/10/16 study. Nonobstructing right renal calculus. No evidence for an obstructing calcul us. The urinary bladder is unremarkable. No abscess, adenopathy or abnormal fluid collection within t he abdomen or pelvis. IMPRESSION: Stable abdominal aortic aneurysms. Nonobstructing right renal calculus, but no evidence for acute obstruction. Somewhat small contracted appearing gallbladder with possible small gallstone but no per icholecystic fat stranding. POS: VALERIO
[2017-11-30] MEDS: Atorvastatin Calcium 40 MG TAB PO SCH (20:03)
[2017-11-30] MEDS: Cipro 250 MG TAB PO SCH (20:03)
--- NOTE | 2017-11-30 21:01 | CON ---
DATE OF CONSULTATION: 11/30/2017 REASON FOR CONSULTATION: Fever. 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 The patient developed general malaise and fevers, which started the day before admission. He denied any headaches. No visual symptoms, sore throat, odynophagia, dysphagia. No back pain. No dyspnea or cough. He did have quite pronounced increased urinary frequency with some dysuria. No diarrhea. No bleeding. No joint symptoms. 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 PAST SURGICAL HISTORY: Cardiac stenting, craniotomy with resection of lymphoma. SOCIAL HISTORY: Never a smoker. FAMILY HISTORY: Noncontributory. ALLERGIES: PENICILLIN with rash. CURRENT MEDICATIONS: Tylenol, alogliptin, Ecotrin, Lipitor, aztreonam, Coreg, Plavix, enoxaparin, insulin, multivitamins, pantoprazole, vancomycin. PHYSICAL EXAMINATION: VITAL SIGNS: T-max 98.5, blood pressure 130/60, pulse 63, respirations 18, O2 sat 96%. GENERAL: Appears in no distress, oriented. SKIN: Shows a port, which is accessed at this time without inflammatory changes. The patient does not have a Pinedo catheter and is voiding spontaneously in the urinal. HEENT: No lymphadenopathy. Ocular movements are conjugate. Oral cavity moist. NECK: Supple without jugular vein distention. No carotid bruits. LUNGS: With symmetric clear breath sounds. HEART: S1, S2 regular rate without murmurs. ABDOMEN: Soft. Not distended or tender. No ascites. No bladder distention. No organomegaly. EXTREMITIES: No joint inflammatory activity. No edema. Pulses 1+ in dorsalis pedis. Strength in the upper and lower extremities is preserved and symmetric. NEUROLOGIC: Cognitive function appears to be intact. A little bit of hearing impairment. LABORATORY DATA: White cell count on admission 14,000 and now is 11,000, platelets 206, hemoglobin 10.8, neutrophil percentage 75 on arrival and now 74% . Chemistry with a sodium 137, creatinine 1.15. Liver profile is normal. Albumin is 3.3. Urinalysis with 21 to 50 wbc's. We have 2 sets of blood cultures, thus far no growth; and we have a urine culture with Klebsiella pneumoniae with 75,000-100,000 CFUs per mL. IMAGING STUDIES: The patient had an abdomen and pelvis in 2017, which showed infrarenal abdominal aortic aneurysm and other issues with the vessels, but no imaging studies now. There is a chest x-ray, which showed no acute cardiopulmonary abnormality. ASSESSMENT: 1. Large-cell lymphoma, on chemotherapy. 2. New onset of fever. 3. Neutrophilia. 4. Dysuria with positive urine cultures and abnormal urinalysis. DISCUSSION: With the absence of other sites of involvement, the differential diagnosis includes urinary tract infection with pyelonephritis. We will need to image the abdomen. We will go ahead and order a CT stone protocol, rule out obstruction and nephrolithiasis. Other sites of involvement that could be of concern include the port, but thus far blood cultures are negative. If they remain negative, then I would pretty much exclude the port as a culprit here. No other intra-abdominal or respiratory tract inflammatory process identified at this point in time, and no evidence of central nervous system inflammatory process either. Recurrence of lymphoma would be another concern but it is not apparent at this time. The organism identified is broadly susceptible and eventually if the diagnosis is confirmed, then can be discharged on oral quinolone for another 10 days approximately. It seems like he does not have evidence to suggest urinary retention at this point in time. JOSE MD
[2017-12-01] MEDS: Sodium Chloride 0.9% 1,000 ML IV SCH (04:56)
[2017-12-01 05:07] LABS: Anion Gap 12 mmol/L (10-20); BUN (Urea Nitrogen) 13 mg/dL (8.4-25.7); Calc. Creatinine Clearance 80 mL/min (70-130); Calcium 8.7 mg/dL (7.8-10.44); Carbon Dioxide 24 mmol/L (23-31); Chloride 110 mmol/L (98-107); Estimated GFR-MDRD 87; Glucose 107 mg/dL (83-110); Potassium 3.7 mmol/L (3.5-5.1); Sodium 142 mmol/L (136-145)
[2017-12-01 05:23] LABS: Band 2 % (5-11); Eosinophils 5 % (0-10); Hemoglobin 9.6 g/dL (14.0-18.0); Hypochromia SLIGHT = 6-15 cells (100X) (0-5/hpf); Lymphocytes 12 % (21-51); MDiff Complete? YES; Mean Corpuscular Hemoglobin 30.4 pg (27.0-31.0); Mean Platelet Volume 8.1 fL (7.4-10.4); Monocytes 15 % (0-10); Neutrophil 66 % (42-75); PLT Morphology Comment Appears Adequate; Platelet Count 229 thou/uL (130-400); RBC Distribution Width 14.5 % (11.5-14.5); Red Blood Cell (RBC) Count 3.17 mill/uL (4.70-6.10); White Blood Cell (WBC) Count 4.6 thou/uL (4.8-10.8)
[2017-12-01] MEDS: Cipro 250 MG TAB PO SCH (06:23)
[2017-12-01] MEDS: Clopidogrel Bisulfate 75 MG TAB PO SCH (08:52)
[2017-12-01] MEDS: Enoxaparin Sodium 40 MG/0.4 ML SYRINGE SC SCH (08:52)
[2017-12-01] MEDS: Carvedilol 3.125 MG TAB PO SCH (08:52)
[2017-12-01] MEDS: Alogliptin 25 MG TAB PO SCH (08:52)
[2017-12-01] MEDS: Stress 600 With Zinc 1 TAB PO SCH (08:53)
[2017-12-01] MEDS: Aspirin 81 mg Enteric Coated Tablet PO SCH (08:53)
[2017-12-01 11:26] VITALS: BP 119/58; TEMP 97.7
--- NOTE | 2017-12-01 12:57 | DIS ---
DATE OF ADMISSION: 11/29/2017 DATE OF DISCHARGE: 12/01/2017 CONDITION AT THE TIME OF DISCHARGE: Stable and improved. DISCHARGE DIAGNOSES: 1. Sepsis secondary to urinary tract infection. 2. Urinary tract infection with Klebsiella species. 3. Primary central nervous system lymphoma, currently on chemotherapy at [facility]. 4. Diabetes mellitus type 2. 5. Hypertension. DISCHARGE MEDICATIONS: Restart home medications as per HPI. No changes were made. New Medications: Ciprofloxacin 500 mg p.o. b.i.d. for 10 more days and Florastor 250 mg daily for 14 days. INHOUSE CONSULTATIONS: 1. Oncology, Dr. Terrence Kessler. 2. Infectious Disease, Dr. Nevarez. PROCEDURES DONE IN THE HOSPITAL: 1. Chest x-ray upon presentation, which was unremarkable. No evidence of infiltrates. 2. CT scan of the abdomen and pelvis, which is negative for any urinary obstruction, pyelonephritis. Stable 4.9 cm abdominal aortic aneurysm below the level of the renal arteries was seen. Nonobstruc ting right renal calculus was also seen. Small gallstones without pericholecystic fat stranding seen . PRIMARY CARE PHYSICIAN: Jaydon Ibrahim D.O. DISCHARGE DISPOSITION: Home with home health. HISTORY OF PRESENTING ILLNESS: Mr. 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 His last josesito motherapy was 13 days ago prior to this presentation and he has received his third cycle. He develop ed a fever of 101 at home and was not feeling well with some generalized weakness. Upon presentation , his white count was 14.1, temperature of 101.4. His urinalysis showed positive leukocyte esterase. Chest x-ray was unremarkable. He was admitted with a presumptive diagnosis of sepsis secondary to urinary tract infection. Please see admission history and physical for further details. HOSPITAL COURSE: Mr. Moon had a rather unremarkable hospital course. His blood cultures remain neg ative. His port site was examined and was unremarkable. His urine culture did come back positive fo r Klebsiella species, which was resistant to Bactrim and intermediate sensitivity to ampicillin and n itrofurantoin. He was treated with IV aztreonam and vancomycin in the hospital and Infectious Diseas e was also consulted for given his history of immunosuppression and cancer chemotherapy. When his urine sensitivities came back, Dr. Nevarez suggested changing the antibiotics to oral and he w as started on oral ciprofloxacin. As of this morning, he is back to his baseline, afebrile, eating a nd drinking well and ambulating well. Home health was brought up and the patient's thought that would really help the patient and the patient accepted that as well. Home health is being arranged and he will be discharged after that. They have rescheduled to follow up appointment for a staging MRI at [facility] and it is this daisyi ng Wednesday, this being Wednesday. He was seen and examined prior to discharge. PHYSICAL EXAMINATION: VITAL SIGNS: This morning, temperature 97.7, pulse of 60, respirations 18, saturating 97% on room ai r, blood pressure 119/58. GENERAL: No acute distress, awake, alert, oriented x3. CHEST: Clear to auscultation bilaterally. HEART: Rate and rhythm regular. LABORATORY DATA: CBC shows WBCs 4.6, which was 14.1 upon presentation, hemoglobin 9.6, which was 10. 8 upon presentation. Serum chemistries unremarkable. Blood culture negative x2. Urine culture, Kle bsiella pneumoniae species. They will follow up with primary care physician in 1-2 weeks as well. Prescriptions were provided an d discharge plan was discussed with the patient and his and they verbalized understanding. Total time spent in the discharge of this patient 32 minutes.
== END 2017-12-01 12:50 | disposition home or self-care (01) | DRG 872 ==
LOC: ERS 20:10 → OBSVTOIN 11-29 00:31 → ONC 11-29 00:31
PROVIDERS: ADMIT Internal Medicine; ATTEND Internal Medicine
DX: A41.50 Gram-negative sepsis, unspecified (principal); N39.0 Urinary tract infection, site not specified; C85.89 Other specified types of non-Hodgkin lymphoma, extranodal and solid organ sites; A41.9 Sepsis, unspecified organism; E78.5 Hyperlipidemia, unspecified; K21.9 Gastro-esophageal reflux disease without esophagitis; Z88.0 Allergy status to penicillin; Z92.21 Personal history of antineoplastic chemotherapy; E11.9 Type 2 diabetes mellitus without complications; T45.1X5A Adverse effect of antineoplastic and immunosuppressive drugs, initial encounter; I10 Essential (primary) hypertension; Z79.02 Long term (current) use of antithrombotics/antiplatelets; Z79.4 Long term (current) use of insulin
CPT/HCPCS: 36415; 36416; 71045; 74176; 80048; 80053; 81003; 81015; 83605; 83735; 85025; 87040; 87077; 87086; 87186; 96365; 96366; J0696; J1642; J1650; J3370; J3490; J7050

== ENCOUNTER 2019-08-21 08:36 | Outpatient (CLI) | payer MEDICARE ==
[2019-08-21] MEDS ORDERED: Magnevist 469MG/ML 20 ML VIAL ONE (10:04)
--- NOTE | 2019-08-21 10:33 | MRI ---
MRI BRAIN WITH AND WITHOUT CONTRAST: DATE: 08/21/2019 HISTORY: 84-year-old male "C 85.89 lymphoma restaging" COMPARISON: 01/18/2019 MRI from [facility] in , images. The report is not available. TECHNIQUE: Multiplanar, multisequence MRI of the brain performed pre- and post-IV injection of gadolinium based contrast agent. FINDINGS: Old left pterional craniotomy changes, with adjacent extra-axial postsurgical enhancing scar or granu lation tissue. Deep to this, a small region of left lateral suprasylvian frontal lobe encephalomalacia and gliosis, unchanged. Several centimeters posterior and medial to this, in the left periventricular white matter, mayorga ra diata, and centrum semiovale, a small, approximately 1.5 x 0.4 x 0.6 cm focal CSF-filled brain parenchymal vertically oriented defect surrounded by a halo of gliosis, with hemosiderin stain, repre senting the site of the original brain tumor noted on 07/06/2016. Currently no enhancement involving this lesion, and no interval change since 01/18/2019. An approximately 1.8 x 1.7 x 0.5 cm T1 hypointense, FLAIR hyperintense, and strongly enhancing intrao sseous lesion involving left parietal bone, unchanged in size since 01/18/2019 MRI from [facility]. It has grown in size compared to 03/01/[facility]. CT may be useful for fur ther evaluation of this. Currently, there is no abnormal intra-axial enhancement, mass effect, midline shift, or obstructive h ydrocephalus. No restricted diffusion. No interval change in the brain parenchyma since 01/18/2019.. IMPRESSION: 1) enhancing osseous lesion involving left parietal bone, stable since 01/18/2019, but having grown s bigg 03/01/2018. This is suspicious for osseous metastatic lesion. Noncontrast CT may be useful. 2) old left pterional craniotomy changes, with small region of adjacent left lateral frontal encephal omalacia and gliosis. 3) small focus of residual chronic changes at site of first identified original brain tumor in left d eep cerebral white matter, unchanged since 01/18/2019. 4) currently no evidence of active malignant brain tumor.
== END 2019-08-21 08:37 | disposition home or self-care (01) ==
LOC: TBSIIMAG 08:36
PROVIDERS: ATTEND Internal Medicine Hematology & Oncology
DX: C85.90 Non-Hodgkin lymphoma, unspecified, unspecified site (principal); G93.89 Other specified disorders of brain; M89.9 Disorder of bone, unspecified
CPT/HCPCS: 70553; A9579

== ENCOUNTER 2022-03-02 10:15 | Inpatient (IN) | payer MEDICARE ==
[2022-03-02 12:56] LABS: Hemoglobin 11.8 g/dL (13.5-17.5); Mean Corpuscular HGB CONC 33.3 g/dL (32.0-36.0); Mean Corpuscular Volume 90.1 fl (81.2-95.1); Mean Platelet Volume 10.5 fl (7.4-10.4); Platelet Count 220 10x3/uL (150-450); RBC Distribution Width 13.9 % (11.5-14.5); Red Blood Cell (RBC) Count 3.93 10x6/uL (4.32-5.72); White Blood Cell (WBC) Count 6.7 10x3/uL (3.5-10.5)
[2022-03-02 13:16] LABS: Anion Gap 12 mmol/L (10-20); BUN (Urea Nitrogen) 31 mg/dL (8.4-25.7); Calc. Creatinine Clearance 0 mL/min (70-130); Calcium 9.5 mg/dL (7.8-10.44); Carbon Dioxide 30 mmol/L (23-31); Chloride 107 mmol/L (98-107); Estimated GFR 47; Glucose 97 mg/dL (83-110); Potassium 4.6 mmol/L (3.5-5.1); Sodium 144 mmol/L (136-145)
[2022-03-03] MEDS ORDERED: Fentanyl 250 MCG/5 ML VIAL ONE (06:07)
[2022-03-03] MEDS ORDERED: Protamine Sulfate 50 MG/5 ML VIAL ONE (06:28)
[2022-03-03] MEDS ORDERED: Heparin 10,000 UNITS/ 10 ML VIAL ONE (06:28)
[2022-03-03] MEDS ORDERED: Lidocaine 1% MPF 2 ML VIAL ONE (06:41)
[2022-03-03 07:21] LABS: SARS-CoV-2 NAA Rapid Test Not Detected (NotDetected)
[2022-03-03] MEDS ORDERED: Clindamycin/D5W 900 mg/50 ml Premix Bag ONE (07:22)
[2022-03-03] MEDS ORDERED: PROPOFOL 200 MG/20 ML VIAL ONE (07:36)
[2022-03-03] MEDS ORDERED: Ondansetron PF 4 MG/2 ML Vial ONE (07:36)
[2022-03-03] MEDS ORDERED: Rocuronium Bromide 10 MG/ML (10ML VIAL) ONE (07:36)
[2022-03-03] MEDS ORDERED: Mannitol 12.5 GM/50 ML ONE (08:41)
[2022-03-03] MEDS ORDERED: SUGAMMADEX SODIUM 200 MG/2 ML VIAL ONE (09:17)
[2022-03-03] MEDS ORDERED: Ondansetron PF 4 MG/2 ML Vial IVP PRN (09:27)
[2022-03-03] MEDS ORDERED: Phenylephrine 40 MG in Sodium Chloride 0.9% 250 ML 250 ML IVPB PRN (09:27)
[2022-03-03] MEDS ORDERED: niCARdipine 25 MG in Sodium Chloride 0.9% 250 ML 250 ML IVPB PRN (09:27)
[2022-03-03] MEDS ORDERED: traMADol HCl 50 MG TAB PO PRN (09:27)
[2022-03-03] MEDS ORDERED: Fentanyl 100 MCG/2 ML VIAL SLOW IVP PRN (09:27)
[2022-03-03] MEDS ORDERED: Acetaminophen 325 MG TAB PO PRN (09:27)
[2022-03-03] MEDS ORDERED: Dextrose 5% in Water 1,000 ML IV PRN (09:33)
[2022-03-03] MEDS ORDERED: HumaLOG 300 UNITS/3 ML VIAL SC PRN (09:33)
[2022-03-03] MEDS ORDERED: Dextrose 50% Abboject 50 ML SYRINGE SLOW IVP PRN (09:33)
[2022-03-03] MEDS ORDERED: Fentanyl 100 MCG/2 ML VIAL ONE (09:58)
[2022-03-03 12:06] VITALS: BMI 21.7
[2022-03-03] MEDS: Lactated Ringer's 1,000 ML IV SCH ×2 (12:08→21:13)
[2022-03-03] MEDS: Clindamycin/D5W 900 MG in Premix Bag 1 BAG IVPB SCH ×2 (14:39→20:54)
[2022-03-03] MEDS: Carvedilol 3.125 MG TAB PO SCH (20:56)
[2022-03-03] MEDS ORDERED: Losartan 25 MG TAB PO SCH (21:00)
[2022-03-03] MEDS ORDERED: Atorvastatin Calcium 40 MG TAB PO SCH (21:00)
[2022-03-04] MEDS: Clindamycin/D5W 900 MG in Premix Bag 1 BAG IVPB SCH ×2 (01:53→08:04)
[2022-03-04] MEDS: Lactated Ringer's 1,000 ML IV SCH (01:56)
[2022-03-04 03:18] LABS: #Eosinphils 0.1 thou/uL (0.0-0.7); #Lymphocytes 1.2 thou/uL (1.20-3.40); #Monocytes 0.8 thou/uL (0.11-0.59); #Neutrophils 4.9 thou/uL (1.40-6.50); %Basophils 0.6 % (0.0-1.0); %Eosinophils 1.7 % (0.0-10.0); %Lymphocytes 16.8 % (21.0-51.0); %Monocytes 11.1 % (0.0-10.0); %Neutrophils 69.8 % (42.0-75.0); Hemoglobin 10.3 g/dL (14.0-18.0); Mean Corpuscular HGB CONC 35.2 g/dL (32.0-36.0); Mean Corpuscular Hemoglobin 32.4 pg (27.0-31.0); Mean Corpuscular Volume 92.1 fl (78.0-98.0); Mean Platelet Volume 7.8 fL (7.4-10.4); Platelet Count 157 10x3/uL (130-400); RBC Distribution Width 12.5 % (11.5-14.5); Red Blood Cell (RBC) Count 3.19 mill/uL (4.70-6.10); White Blood Cell (WBC) Count 6.9 10x3/uL (4.8-10.8)
[2022-03-04 03:38] LABS: Anion Gap 12 mmol/L (10-20); BUN (Urea Nitrogen) 20 mg/dL (8.4-25.7); Calc. Creatinine Clearance 45 mL/min (70-130); Calcium 8.9 mg/dL (7.8-10.44); Carbon Dioxide 26 mmol/L (23-31); Chloride 105 mmol/L (98-107); Estimated GFR 55; Glucose 122 mg/dL (83-110); Potassium 4.1 mmol/L (3.5-5.1); Sodium 139 mmol/L (136-145)
[2022-03-04] MEDS: Carvedilol 3.125 MG TAB PO SCH (08:05)
[2022-03-04 08:11] VITALS: TEMP 98.2
[2022-03-04] MEDS ORDERED: Alogliptin 25 MG TAB PO SCH (09:00)
[2022-03-04] MEDS ORDERED: Aspirin Chewable 81 MG TAB PO SCH (09:00)
== END 2022-03-04 09:21 | disposition home or self-care (01) | DRG 269 ==
LOC: SURG A 03-03 05:49 → CCU 03-03 11:54
PROVIDERS: ADMIT Thoracic Surgery (Cardiothoracic Vascular Surgery); ATTEND Thoracic Surgery (Cardiothoracic Vascular Surgery)
PROC: 04V03EZ Restriction of Abdominal Aorta with Branched or Fenestrated Intraluminal Device, One or Two Arteries, Percutaneous Approach (ICD-10-PCS; principal; 2022-03-03)
PROC: B4101ZZ Fluoroscopy of Abdominal Aorta using Low Osmolar Contrast (ICD-10-PCS; 2022-03-03)
DX: I71.40 Abdominal aortic aneurysm, without rupture, unspecified (principal); C85.10 Unspecified B-cell lymphoma, unspecified site; I25.10 Atherosclerotic heart disease of native coronary artery without angina pectoris; I10 Essential (primary) hypertension; E78.5 Hyperlipidemia, unspecified; E11.9 Type 2 diabetes mellitus without complications; I49.5 Sick sinus syndrome; Z88.0 Allergy status to penicillin; Z95.5 Presence of coronary angioplasty implant and graft; Z79.899 Other long term (current) drug therapy; Z79.82 Long term (current) use of aspirin; Z79.02 Long term (current) use of antithrombotics/antiplatelets; Z79.84 Long term (current) use of oral hypoglycemic drugs
CPT/HCPCS: 36415; 36416; 80048; 85025; 85027; 86850; 86900; 86901; C1760; C1769; C1776; C1889; C1894; J1642; J1644; J2150; J2405; J2704; J2720; J3010; J3490; J7120; U0002

== ENCOUNTER 2022-03-22 10:15 | Emergency (ER) | payer MEDICARE ==
[~2022-03-22 10:15] MED LIST: Iopamidol 370 76% 75 ML VIAL FS ONE
[2022-03-22 11:13] LABS: #Eosinphils 0.2 thou/uL (0.0-0.7); #Lymphocytes 1.4 thou/uL (1.20-3.40); #Monocytes 0.6 thou/uL (0.11-0.59); #Neutrophils 4.9 thou/uL (1.40-6.50); %Basophils 0.7 % (0.0-1.0); %Eosinophils 2.6 % (0.0-10.0); %Lymphocytes 19.3 % (21.0-51.0); %Monocytes 8.1 % (0.0-10.0); %Neutrophils 69.3 % (42.0-75.0); Hemoglobin 11.5 g/dL (14.0-18.0); Mean Corpuscular HGB CONC 33.8 g/dL (32.0-36.0); Mean Corpuscular Hemoglobin 30.7 pg (27.0-31.0); Mean Corpuscular Volume 90.9 fl (78.0-98.0); Mean Platelet Volume 7.4 fL (7.4-10.4); Platelet Count 360 10x3/uL (130-400); RBC Distribution Width 12.6 % (11.5-14.5); Red Blood Cell (RBC) Count 3.76 mill/uL (4.70-6.10); White Blood Cell (WBC) Count 7.1 10x3/uL (4.8-10.8)
[2022-03-22 11:30] LABS: ALT (SGPT) 21 U/L (8-55); AST (SGOT) 20 U/L (5-34); Albumin 3.6 g/dL (3.4-4.8); Alkaline Phosphatase 108 U/L (40-110); Anion Gap 13 mmol/L (10-20); BUN (Urea Nitrogen) 26 mg/dL (8.4-25.7); Bilirubin, Total 0.5 mg/dL (0.2-1.2); Calc. Creatinine Clearance 0 mL/min (70-130); Calcium 9.3 mg/dL (7.8-10.44); Carbon Dioxide 25 mmol/L (23-31); Chloride 107 mmol/L (98-107); Estimated GFR 59; Globulin 3.3 g/dL (2.4-3.5); Glucose 123 mg/dL (83-110); Potassium 4.7 mmol/L (3.5-5.1); Protein, Total 6.9 g/dL (5.8-8.1); Sodium 140 mmol/L (136-145)
[2022-03-22 12:00] LABS: Bilirubin Negative (Negative); Blood, Urine Negative (Negative); Clarity Clear (Clear); Glucose, Urine (Dipstick) Normal (Negative); Ketone, Urine Negative (Negative); Leukocyte Negative Leu/uL (Negative); Nitrite Negative (Negative); Protein, Urine (Dipstick) 10 mg/dL (Neg-Trace); Specific Gravity, Urine 1.024 (1.002-1.036); Urobilinogen Normal mg/dL (Less than 2); pH, Urine 5.5 (5.0-9.0)
[2022-03-22 12:31] LABS: PTT 26.8 sec (22.9-36.1); Prothrombin Time 13.8 sec (12.0-14.7)
== END 2022-03-22 15:19 | disposition home or self-care (01) ==
LOC: ERS 10:15
DX: R55 Syncope and collapse (principal); K59.00 Constipation, unspecified; I10 Essential (primary) hypertension; E78.5 Hyperlipidemia, unspecified; K21.9 Gastro-esophageal reflux disease without esophagitis; E11.9 Type 2 diabetes mellitus without complications; Z79.82 Long term (current) use of aspirin
CPT/HCPCS: 36415; 36416; 70450; 71275; 74174; 80053; 81003; 84484; 85025; 85610; 85730; 93005; 96360; 96361; Q9967

== ENCOUNTER 2022-12-30 08:52 | Outpatient (CLI) | payer MEDICARE ==
[2022-12-30 10:47] LABS: Hematocrit 33.2 % (38.8-50.0); Hemoglobin 10.6 g/dL (13.5-17.5); Mean Corpuscular HGB CONC 31.9 g/dL (32.0-36.0); Mean Corpuscular Volume 87.8 fl (81.2-95.1); Mean Platelet Volume 10.3 fl (7.4-10.4); Platelet Count 232 10x3/uL (150-450); RBC Distribution Width 15.8 % (11.5-14.5); Red Blood Cell (RBC) Count 3.78 10x6/uL (4.32-5.72); White Blood Cell (WBC) Count 9.9 10x3/uL (3.5-10.5)
[2022-12-30 11:07] LABS: Anion Gap 14 mmol/L (10-20); BUN (Urea Nitrogen) 23 mg/dL (8.4-25.7); Calc. Creatinine Clearance 0 mL/min (70-130); Carbon Dioxide 26 mmol/L (23-31); Chloride 105 mmol/L (98-107); Estimated GFR 43; Glucose 146 mg/dL (83-110); Potassium 4.1 mmol/L (3.5-5.1); Sodium 141 mmol/L (136-145)
== END 2022-12-30 08:53 | disposition home or self-care (01) ==
LOC: LABBT 08:52
PROVIDERS: ATTEND Thoracic Surgery (Cardiothoracic Vascular Surgery)
DX: Z01.818 Encounter for other preprocedural examination (principal); C71.1 Malignant neoplasm of frontal lobe
CPT/HCPCS: 80048; 85027; 93005; 93010

== ENCOUNTER 2023-01-05 07:13 | Day surgery (SDC) | payer MEDICARE ==
[2022-12-30 09:29] VITALS: BMI 22.1
[2023-01-05] MEDS ORDERED: Bupivacaine PF 0.5% 30 ML VIAL ONE (08:13)
[2023-01-05] MEDS ORDERED: EPINEPHrine 1 MG/ML VIAL ONE (08:13)
[2023-01-05] MEDS ORDERED: Clindamycin/D5W 600 mg/50 ml Premix Bag ONE (08:33)
[2023-01-05] MEDS ORDERED: PROPOFOL 20 ML ONE (08:37)
== END 2023-01-05 10:22 | disposition home or self-care (01) ==
LOC: SDC 07:13
PROVIDERS: ATTEND Thoracic Surgery (Cardiothoracic Vascular Surgery)
PROC: 0JPV0WZ Removal of Totally Implantable Vascular Access Device from Upper Extremity Subcutaneous Tissue and Fascia, Open Approach (ICD-10-PCS; principal; 2023-01-05)
DX: C71.1 Malignant neoplasm of frontal lobe (principal); Z45.2 Encounter for adjustment and management of vascular access device; Z88.0 Allergy status to penicillin
CPT/HCPCS: 36590; J0171; J2704; J3490; S0020